=== PATIENT | female | born 2005 | race Caucasian/White ===

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

== ENCOUNTER 2024-03-08 13:54 | Emergency (ER) | payer OTHER ==
[~2024-03-08] VITALS: Ht 170.2 cm; Wt 127.0 kg
[~2024-03-08 13:54] MED LIST changes: +IBU400 MG PO; +ZYRTEC10 M3
[2024-03-08] MEDS ORDERED: IBUprofen 400 MG TABLET PO STA (14:26)
[2024-03-08] MEDS ORDERED: IBUprofen 20 MG/ML BLIST.PACK (5ML) PO ONE (15:04)
[2024-03-08 15:23] LABS: HEMATOCRIT 36.6 % (36.0-45.00); HEMOGLOBIN 11.9 g/dL (12.0-15.00); MEAN CELL VOLUME 76.6 fL (80.00-100.00); MEAN CORPUSCULAR HEMOGLOBIN 24.9 pg (27.00-32.0); MEAN CORPUSCULAR HGB CONC 32.5 g/dl (32.0-36.0); PLATELET COUNT 337 K/uL (150-450); RED BLOOD COUNT 4.77 M/uL (4.00-6.00); RED CELL DISTRIBUTION WIDTH 16.5 % (11.5-14.5)
[2024-03-08 15:34] LABS: ERYTHROCYTE SEDIMENTATION RATE 35 mm/hr
[2024-03-08 15:47] LABS: ALBUMIN 3.5 gm/dL (3.4-5.0); BILIRUBIN TOTAL 0.26 mg/dL (0.3-1.2); CALCIUM 8.9 mg/dL (8.5-10.1); CREATININE SERUM 0.56 mg/dL (0.55-1.02); GFR 139.46; GLOBULINA 3.9 G/DL (2.4-3.5); POTASSIUM 3.8 mEq/L (3.5-5.1); TOTAL PROTEIN 7.4 gm/dL (6.4-8.2)
[2024-03-08 16:21] LABS: URINE APPEARANCE Clear; URINE BACTERIA 234.3 uL (0.0-1933); URINE BILIRRUBIN Negative (NEGATIVE); URINE BLOOD Trace; URINE COLOR Yellow; URINE EPITHELIAL CELLS 4.3 uL (0.0-38.8); URINE GLUCOSE Negative (NEGATIVE); URINE KETONE Trace (NEGATIVE); URINE LEUKOCYTE Negative; URINE NITRATE Negative; URINE PROTEIN Negative (NEGATIVE); URINE RBC 4.7 uL (0.0-20.8); URINE WBC 3.7 uL (0.0-23.2)
== END 2024-03-08 17:25 | disposition home or self-care (01) ==
LOC: EMR PED 13:55 → ER 13:55 → EMR PED 14:51
PROVIDERS: Pediatrics
DX: M25.472 Effusion, left ankle (principal); Z91.013 Allergy to seafood

== ENCOUNTER 2024-07-10 19:07 | Emergency (ER) | payer OTHER ==
[~2024-07-10] VITALS: Ht 170.2 cm; Wt 131.5 kg
[2024-07-10] MEDS ORDERED: KETOROLAC TROMETHAMINE 30 MG VIAL IM STA (19:39)
[2024-07-10] MEDS ORDERED: DEXAMETHASONE SODIUM PHOSPHATE 4 MG/ML VIAL IM STA (19:39)
== END 2024-07-10 21:57 | disposition home or self-care (01) ==
LOC: ER 19:10 → EMR PED 19:15 → ER 19:15 → EMR PED 21:57
DX: M79.672 Pain in left foot (principal); Z91.018 Allergy to other foods

== ENCOUNTER 2024-09-05 15:57 | Emergency (ER) | payer OTHER ==
[~2024-09-05] VITALS: Ht 170.2 cm; Wt 131.5 kg
[2024-09-05 16:12] VITALS: BP 112/80; O2SAT 99
[2024-09-05] MEDS ORDERED: 0.9 % SODIUM CHLORIDE 1,000 ML IV SCH (17:15)
[2024-09-05 18:00] LABS: HEMATOCRIT 33.5 % (36.0-45.00); HEMOGLOBIN 11.1 g/dL (12.0-15.00); MEAN CELL VOLUME 77.9 fL (80.00-100.00); MEAN CORPUSCULAR HEMOGLOBIN 25.9 pg (27.00-32.0); MEAN CORPUSCULAR HGB CONC 33.2 g/dl (32.0-36.0); PLATELET COUNT 352 K/uL (150-450); RED BLOOD COUNT 4.29 M/uL (4.00-6.00); RED CELL DISTRIBUTION WIDTH 15.3 % (11.5-14.5)
[2024-09-05 18:20] LABS: INR 1.01; PARTIAL THROMBOPLASTIN TIME 28.4 SECONDS (22.0-34.0)
[2024-09-05 18:25] LABS: ALBUMIN 3.7 gm/dL (3.4-5.0); BILIRUBIN TOTAL 0.16 mg/dL (0.3-1.2); CREATININE SERUM 0.64 mg/dL (0.55-1.02); GFR 118.3; GLOBULINA 3.8 G/DL (2.4-3.5); POTASSIUM 3.71 mEq/L (3.5-5.1); TOTAL PROTEIN 7.5 gm/dL (6.4-8.2)
[2024-09-05] MEDS ORDERED: ESTROGENS, CONJUGATED 25 MG VIAL IV ONE (19:00)
[2024-09-05] MEDS ORDERED: KETOROLAC TROMETHAMINE 30 MG VIAL IV ONE (19:00)
[2024-09-05] MEDS ORDERED: KETOROLAC TROMETHAMINE 30 MG VIAL ONE (19:44)
[2024-09-05] MEDS ORDERED: ESTROGENS, CONJUGATED 25 MG VIAL ONE (19:45)
[2024-09-05] MEDS ORDERED: MEDROXYPROGESTE10 MG PO (20:03)
== END 2024-09-05 20:49 | disposition home or self-care (01) ==
LOC: ER 15:59 → EMR PED 17:25 → ER 17:25
PROVIDERS: General Practice
DX: N93.8 Other specified abnormal uterine and vaginal bleeding (principal); Z91.018 Allergy to other foods
CPT/HCPCS: 36415; 76856; 96365; 96366; 99284; J1885; J3490; J7030